=== PATIENT | female | born 1940 | race Caucasian/White ===

== ENCOUNTER → 2019-01-01 | Outpatient (CLI) | payer OTHER ==
[~2019-01-01] VITALS: Ht 154.9 cm; Wt 56.7 kg
[~2019-01-01] MED LIST: ASA81BEC PO; CALCIUM500 MG PO; FENOFIBRATE160 MG PO; JANUVIA100 MG PO; LIPITOR20 MG PO; PROLIA60 MG/1 ML SUBQ
--- NOTE | 2019-01-02 12:41 | P ---
[facility] [place] [address] PROCEDURE REPORT Name: JUDITHSIERRA Angelic Room #: REG [facility]#: [id number] Admission: 01/01/19 Attend Phys: Tripp oRss Discharge: Date of : 44 Report #: [id number] THIS REPORT FOR: //name// CC: Tripp Swann MD DATE OF SERVICE: 01/01/2019 PROCEDURE PERFORMED: Colonoscopy. HISTORY OF PRESENT ILLNESS: The patient is a 78-year-old female with a history of polyps, here for routine 5-year followup. Denies any symptoms. No family history of colon cancer. DESCRIPTION OF PROCEDURE: The risks and benefits of the procedure were explained to the patient, those risks including but not limited to bleeding, perforation and the risk of sedation. She understood these risks and gave informed consent. Sedation was given using propofol per Anesthesia. Next, a digital rectal exam was initially performed, which was normal. Next, using a standard Olympus colonoscope, the scope was placed in the patient's anus and advanced under direct vision to the cecum. The overall prep was excellent. The cecum and ileocecal valve were normal in appearance. Ascending, transverse and descending colon were normal. Multiple diverticula were noted in the sigmoid colon, no evidence of inflammation, otherwise normal. The rectal mucosa was normal. On retroflexion, no abnormalities were noted. The scope was then withdrawn and the procedure terminated. The patient tolerated the procedure well. IMPRESSION: 1. Sigmoid diverticulosis. 2. Otherwise, normal colonoscopy. RECOMMENDATIONS: No repeat colonoscopy needed due to the patient's age. Thank you for allowing me to participate in her care. <ELECTRONICALLY SIGNED> By: Tripp Michaud MD 01/02/19 [id number] Tripp Michaud MD /nt
== END | disposition home or self-care (01) ==
LOC: GI 07:07
DX: Z12.11 Encounter for screening for malignant neoplasm of colon (principal); Z86.010 Personal history of colon polyps; K57.30 Diverticulosis of large intestine without perforation or abscess without bleeding; E78.5 Hyperlipidemia, unspecified; E11.9 Type 2 diabetes mellitus without complications; Z90.710 Acquired absence of both cervix and uterus; Z98.890 Other specified postprocedural states; Z79.899 Other long term (current) drug therapy; Z79.82 Long term (current) use of aspirin
CPT/HCPCS: 62110; 62900